=== PATIENT | female | born 1985 | race Two or more races ===

== ENCOUNTER 2023-10-22 19:11 | Emergency (ER) | payer OTHER ==
[~2023-10-22] VITALS: Ht 170.2 cm; Wt 72.6 kg
== END 2023-10-23 01:23 | disposition home or self-care (01) ==
LOC: ER 19:12
DX: S00.03XA Contusion of scalp, initial encounter (principal); S09.90XA Unspecified injury of head, initial encounter; W19.XXXA Unspecified fall, initial encounter; Y93.89 Activity, other specified; Y92.89 Other specified places as the place of occurrence of the external cause; Y99.8 Other external cause status

== ENCOUNTER 2024-01-15 20:20 | Emergency (ER) | payer OTHER ==
[~2024-01-15] VITALS: Ht 170.2 cm; Wt 69.4 kg
[2024-01-15] MEDS ORDERED: CEFTRIAXONE SODIUM 1,000 MG VIAL IM ONE (21:45)
[2024-01-15] MEDS ORDERED: TETANUS & DIPHTHERIA TOX,ADULT 0.5 ML VIAL IM ONE (21:45)
[2024-01-15] MEDS ORDERED: CIPRO500 MG PO (21:45)
== END 2024-01-15 22:11 | disposition home or self-care (01) ==
LOC: ER 20:21
DX: S60.572A Other superficial bite of hand of left hand, initial encounter (principal); W54.0XXA Bitten by dog, initial encounter; Y93.89 Activity, other specified; Y92.89 Other specified places as the place of occurrence of the external cause; Y99.9 Unspecified external cause status